=== PATIENT | female | born 1995 | race Two or more races ===

== ENCOUNTER → 2016-11-06 | Outpatient (REF) | payer OTHER | LOC: M SFHCLERA 16:54 | PROVIDERS: ATTEND Nurse Practitioner Family | DX: R53.81 Other malaise (principal) ==

== ENCOUNTER → 2020-01-03 | Outpatient (REF) | payer OTHER | LOC: M SFHCLERA 14:40 | PROVIDERS: ATTEND Physician Assistant | DX: J00 Acute nasopharyngitis [common cold] (principal) ==

== ENCOUNTER → 2023-06-25 | Outpatient (REF) | payer OTHER | LOC: M PLALAB 10:30 | PROVIDERS: ATTEND Advanced Practice Midwife | DX: Z53.9 Procedure and treatment not carried out, unspecified reason (principal) ==

== ENCOUNTER → 2023-07-04 | Outpatient (CLI) | payer BC, OTHER ==
[2023-07-04 15:58] LABS: HEMATOCRIT 38.7 % (36.0-47.0); HEMOGLOBIN 12.9 g/dl (12.0-15.5); MEAN CORPUSCULAR HGB CONC 33.3 g/dl (32.0-36.5); PLATELET COUNT, AUTOMATED 306 10^3/uL (150-450); RED BLOOD COUNT 4.45 10^6/uL (4.00-5.40); WHITE BLOOD COUNT 9.3 10^3/uL (4.0-10.0)
[2023-07-04 16:38] LABS: FREE T4 0.95 NG/DL (0.89-1.76); THYROID STIMULATING HORMONE 7.307 uIU/ML (0.55-4.78)
[2023-07-04 17:08] LABS: HIV 1&2 SCREEN NEGATIVE (NEGATIVE)
[2023-07-04 17:13] LABS: CHLAMYDIA DNA AMPLIFICATION NEGATIVE (NEGATIVE); GC DNA AMPLIFICATION NEGATIVE (NEGATIVE)
[2023-07-04 17:16] LABS: HEPATITIS C VIRUS ABY INDEX 0.05 INDEX (<0.8)
== END ==
LOC: M PLALAB 14:30
PROVIDERS: ATTEND Advanced Practice Midwife
DX: Z34.81 Encounter for supervision of other normal pregnancy, first trimester (principal)

== ENCOUNTER → 2023-08-13 | Outpatient (CLI) | payer BC, OTHER ==
[2023-08-13 16:15] LABS: FREE T4 1.12 NG/DL (0.89-1.76)
[2023-08-13 16:22] LABS: THYROID STIMULATING HORMONE 3.309 uIU/ML (0.55-4.78)
== END ==
LOC: M PLALAB 14:32
PROVIDERS: ATTEND Advanced Practice Midwife
DX: O99.280 Endocrine, nutritional and metabolic diseases complicating pregnancy, unspecified trimester (principal); Z3A.00 Weeks of gestation of pregnancy not specified

== ENCOUNTER → 2023-09-03 | Outpatient (CLI) | payer BC | LOC: M WHC 14:36 | PROVIDERS: ATTEND Advanced Practice Midwife | DX: Z34.82 Encounter for supervision of other normal pregnancy, second trimester (principal) ==

== ENCOUNTER → 2023-10-01 | Outpatient (CLI) | payer BC ==
[2023-10-01 16:00] LABS: FREE T4 1.05 NG/DL (0.89-1.76)
[2023-10-01 16:01] LABS: THYROID STIMULATING HORMONE 2.467 uIU/ML (0.55-4.78)
== END ==
LOC: M PLALAB 12:35
PROVIDERS: ATTEND Advanced Practice Midwife
DX: O99.282 Endocrine, nutritional and metabolic diseases complicating pregnancy, second trimester (principal)

== ENCOUNTER → 2023-11-06 | Outpatient (CLI) | payer BC ==
[2023-11-06 12:47] LABS: HEMATOCRIT 35.2 % (36.0-47.0); HEMOGLOBIN 11.5 g/dl (12.0-15.5); MEAN CORPUSCULAR HEMOGLOBIN 29.8 pg (27.0-33.0); MEAN CORPUSCULAR HGB CONC 32.7 g/dl (32.0-36.5); MEAN CORPUSCULAR VOLUME 91.2 fl (80.0-96.0); PLATELET COUNT, AUTOMATED 233 10^3/uL (150-450); RED BLOOD COUNT 3.86 10^6/uL (4.00-5.40)
== END ==
LOC: M PLALAB 08:35
PROVIDERS: ATTEND Advanced Practice Midwife
DX: Z34.83 Encounter for supervision of other normal pregnancy, third trimester (principal); Z3A.00 Weeks of gestation of pregnancy not specified

== ENCOUNTER → 2023-12-10 | Outpatient (CLI) | payer BC | LOC: M WHC 13:40 | PROVIDERS: ATTEND Specialist | DX: Z34.83 Encounter for supervision of other normal pregnancy, third trimester (principal) ==

== ENCOUNTER → 2023-12-22 | Outpatient (REF) | payer BC | LOC: M SFHCWAGY 12:34 | PROVIDERS: ATTEND Specialist | DX: Z34.83 Encounter for supervision of other normal pregnancy, third trimester (principal); Z36.85 Encounter for antenatal screening for Streptococcus B ==

== ENCOUNTER → 2023-12-31 | Outpatient (CLI) | payer BC ==
[2023-12-31 14:30] LABS: THYROID STIMULATING HORMONE 2.181 uIU/ML (0.55-4.78)
[2023-12-31 14:31] LABS: FREE T4 1.11 NG/DL (0.89-1.76)
== END ==
LOC: M PLALAB 09:54
PROVIDERS: ATTEND Advanced Practice Midwife
DX: O99.283 Endocrine, nutritional and metabolic diseases complicating pregnancy, third trimester (principal); Z3A.00 Weeks of gestation of pregnancy not specified

== ENCOUNTER 2024-01-13 21:48 | Inpatient (IN) | payer BC ==
[~2024-01-13] VITALS: Ht 172.7 cm; Wt 112.9 kg
[2024-01-13] MEDS ORDERED: LEVO50TA5 PO (21:58)
[2024-01-13] MEDS ORDERED: PRENTAB9 PO (21:58)
[2024-01-13] MEDS ORDERED: HOME MED LIST COMPLETE! XX SCH (22:00)
[2024-01-13 22:03] VITALS: BP 135/71; O2SAT 99
[2024-01-13] MEDS ORDERED: LR 1,000 ML IV SCH (22:10)
[2024-01-13] MEDS ORDERED: OXYTOCIN DRIP 30 UNITS in IV 1 EA IV PRN (22:10)
[2024-01-13] MEDS ORDERED: OXYTOCIN INJ 10UNITS/ML 1ML VIAL IV PRN (22:10)
[2024-01-13] MEDS ORDERED: OXYTOCIN DRIP 30 UNITS in IV 1 EA IV SCH (22:10)
[2024-01-13] MEDS ORDERED: METHYLERGONOVINE MALEATE 0.2MG/ML 1ML VIAL IM PRN (22:10)
[2024-01-13] MEDS ORDERED: OXYTOCIN INJ 10UNITS/ML 1ML VIAL IM PRN (22:10)
[2024-01-13] MEDS ORDERED: LIDOCAINE 1% MDV 20ML VIAL INFIL PRN (22:10)
[2024-01-13] MEDS ORDERED: CARBOPROST TROMETHAMINE 250 MCG/ML AMP IM PRN (22:10)
[2024-01-13] MEDS ORDERED: TRANEXAMIC ACID INJection 1,000 MG in NS 100 ML IV PRN (22:10)
[2024-01-13 22:40] LABS: BASO % 0.2 % (0.0-1.0); EOS % 0.3 % (0.0-3.0); HEMATOCRIT 36.4 % (36.0-47.0); LYMPH # 1.6 10^3/uL (1.5-5.0); LYMPH % 14.2 % (24.0-44.0); MEAN CORPUSCULAR HEMOGLOBIN 28.6 pg (27.0-33.0); MEAN CORPUSCULAR VOLUME 86.7 fl (80.0-96.0); MONO # 0.6 10^3/uL (0.0-0.8); MONO % 5.2 % (2.0-8.0); NEUTROPHILS # 8.7 10^3/uL (1.5-8.5); NEUTROPHILS % 79.3 % (36.0-66.0); PLATELET COUNT, AUTOMATED 219 10^3/uL (150-450)
[2024-01-13 22:45] VITALS: BP 125/78
[2024-01-13] MEDS: LACTATED RINGER'S 1000 ML IV STA (23:25)
[2024-01-13] MEDS: LR 1,000 ML IV SCH (23:25)
[2024-01-13 23:39] LABS: HEPATITIS C VIRUS ABY INDEX < 0.02 INDEX (<0.8)
[2024-01-13] MEDS ORDERED: ONDANSETRON 4MG 2ML VIAL IV PRN (23:40)
[2024-01-13] MEDS ORDERED: LR 500 ML IV PRN (23:40)
[2024-01-13] MEDS ORDERED: NALOXONE INJ 0.4MG/1ML VIAL IV PRN (23:40)
[2024-01-13] MEDS ORDERED: ePHEDrine SULFATE 25 MG/5 ML(5MG/ML) SYRINGE IVP PRN (23:40)
[2024-01-13] MEDS ORDERED: EPIDURAL/PCA KEYS XX PRN (23:40)
[2024-01-13] MEDS ORDERED: diphenhydrAMINE 50MG/ML VIAL IV PRN (23:40)
[2024-01-13] MEDS: FENTANYL/ROPIVACAINE/NACL BAG 100 ML EPIDURAL SCH (23:46)
[2024-01-13 23:47] VITALS: BP 137/87
[2024-01-13 23:52] VITALS: BP 141/80
[2024-01-13 23:57] VITALS: BP 136/81
[2024-01-14] VITALS (22 sets, daily range): BP systolic 98–158; BP diastolic 42–92; O2SAT 98
[2024-01-14] MEDS: LEVOTHYROXINE 75MCG TABLET (0.075MG) PO SCH (06:00)
[2024-01-14] MEDS: OXYTOCIN DRIP 30 UNITS in IV 1 EA IV PRN (06:15)
[2024-01-14 06:20] LABS: CORD GAS ABE A -4.5; CORD GAS O2 SAT A 92.6 %; CORD GAS PH A 7.337 UNITS; CORD GAS PO2 A 53.3 mmHg; CORD GAS SBC A 20.7 MMOL/L; CORD GAS TCO2 A 22.2 MMOL/L
[2024-01-14 06:23] LABS: CORD GAS ABE V -4.3; CORD GAS HCO3 V 21.6 MMOL/L; CORD GAS O2 SAT V 79.8 %; CORD GAS PCO2 V 42.8 mmHg; CORD GAS PH V 7.321 UNITS; CORD GAS PO2 V 35.8 mmHg; CORD GAS SBC V 20.5 MMOL/L; CORD GAS TCO2 V 22.9 MMOL/L
[2024-01-14] MEDS ORDERED: DIBUCAINE 1% OINTMENT 30GM TOP PRN (06:25)
[2024-01-14] MEDS ORDERED: IBUPROFEN 800 MG TAB PO PRN (06:25)
[2024-01-14] MEDS ORDERED: MOM 30ML SUSPENSION UDC PO PRN (06:25)
[2024-01-14] MEDS ORDERED: RHO(D) IMMUNE GLOBULIN/MALTOSE 500MCG(2500IU)/2.2ML VIAL (WINRHO) IM SCH (06:25)
[2024-01-14] MEDS: PRENATAL VITAMINS CHEWABLE TABLET PO SCH (08:16)
[2024-01-14] MEDS: DOCUSATE SODIUM 100MG CAPSULE PO SCH (09:00)
[2024-01-14] MEDS ORDERED: LEVO75TA4 PO (11:22)
[2024-01-14] MEDS: ACETAMINOPHEN 500 MG TAB PO PRN (21:22)
[2024-01-15 06:02] VITALS: BP 113/66; O2SAT 98
[2024-01-15] MEDS ORDERED: IBUP80TA PO (12:24)
[2024-01-15] MEDS ORDERED: ACET-683 PO (12:24)
[2024-01-16] MEDS ORDERED: MEASLES,MUMPS,RUBELLA VACCINE INJ (MMR-II) SC.IMMUN ONE (09:00)
== END 2024-01-15 14:15 | disposition home or self-care (01) | DRG 560 ==
LOC: M LDO 21:48 → M LDI 22:09 → M OBS 01-14 07:44
PROVIDERS: ADMIT Obstetrics & Gynecology; ATTEND Obstetrics & Gynecology
PROC: 10E0XZZ Delivery of Products of Conception, External Approach (ICD-10-PCS; principal; 2024-01-14)
DX: O99.284 Endocrine, nutritional and metabolic diseases complicating childbirth (principal); E03.9 Hypothyroidism, unspecified; Z37.0 Single live birth; Z3A.38 38 weeks gestation of pregnancy; Z91.040 Latex allergy status; Z79.899 Other long term (current) drug therapy

== ENCOUNTER → 2024-03-30 | Outpatient (CLI) | payer BC ==
[~2024-03-30] MED LIST: ACET-683 PO; IBUP80TA PO; LEVO50TA5 PO; LEVO75TA4 PO; PRENTAB9 PO
[2024-03-30 15:41] LABS: FREE T4 1.32 NG/DL (0.89-1.76); THYROID STIMULATING HORMONE 0.098 uIU/ML (0.55-4.78)
== END ==
LOC: M PLALAB 12:01
PROVIDERS: ATTEND Obstetrics & Gynecology
DX: Z01.818 Encounter for other preprocedural examination (principal)

== ENCOUNTER 2024-04-16 08:15 | Day surgery (SDC) | payer BC ==
[~2024-04-16] VITALS: Ht 172.7 cm; Wt 100.2 kg
[~2024-04-16 08:15] MED LIST changes: +ACETAMINOPHEN *IV* 1,000 MG in APPROPRIATE DILUENT 0 ML IV ONE; +LEVO25TA5 PO
[2024-04-16 08:55] LABS: HEMATOCRIT 43.3 % (36.0-47.0); HEMOGLOBIN 14.2 g/dl (12.0-15.5); MEAN CORPUSCULAR HGB CONC 32.8 g/dl (32.0-36.5); MEAN CORPUSCULAR VOLUME 88.4 fl (80.0-96.0); PLATELET COUNT, AUTOMATED 299 10^3/uL (150-450); WHITE BLOOD COUNT 6.8 10^3/uL (4.0-10.0)
[2024-04-16] MEDS ORDERED: HYDROmorphone HCL 2MG/ML 1ML VIAL As Ordered ONE (08:59)
[2024-04-16] MEDS ORDERED: MIDAZOLAM INJ 2MG/2ML VIAL As Ordered ONE (08:59)
[2024-04-16] MEDS ORDERED: fentaNYL 100 MCG/2 ML INJECTION As Ordered ONE (08:59)
[2024-04-16] MEDS ORDERED: propofoL 200 MG/20 ML VIAL As Ordered ONE (09:00)
[2024-04-16] MEDS ORDERED: SUGAMMADEX SODIUM 500 MG/5 ML VIAL (BRIDION) As Ordered ONE (09:01)
[2024-04-16] MEDS ORDERED: ROCURONIUM BROMIDE 50MG/5ML VIAL As Ordered ONE (09:01)
[2024-04-16] MEDS ORDERED: LIDOCAINE 2% 100MG/5ML SDV (FOR ANES.) As Ordered ONE (09:01)
[2024-04-16] MEDS ORDERED: LR 1,000 ML IV SCH (09:15)
[2024-04-16] MEDS ORDERED: ACETAMINOPHEN 1000MG 100ML IV BAG As Ordered ONE (10:28)
[2024-04-16] MEDS ORDERED: METOCLOPRAMIDE INJ 10MG/2ML VIAL As Ordered ONE (10:34)
[2024-04-16] MEDS ORDERED: ONDANSETRON 4MG 2ML VIAL As Ordered ONE (10:35)
[2024-04-16] MEDS ORDERED: KETOROLAC 60MG 2ML VIAL As Ordered ONE (10:35)
[2024-04-16] MEDS ORDERED: GLYCOPYRROLATE INJ 0.2 MG/ML 2 ML VIAL As Ordered ONE (11:00)
[2024-04-16] MEDS ORDERED: ONDANSETRON 4MG 2ML VIAL IV PRN (11:25)
[2024-04-16] MEDS ORDERED: MORPHINE 2 MG/ML 1ML VIAL IV PRN (11:25)
[2024-04-16] MEDS ORDERED: oxyCODONE 5MG TAB PO PRN (11:25)
[2024-04-16] MEDS ORDERED: fentaNYL 100 MCG/2 ML INJECTION IV PRN (11:25)
[2024-04-16 12:17] VITALS: BP 152/95; TEMP 97.8; O2SAT 98
== END 2024-04-16 12:41 | disposition home or self-care (01) ==
LOC: M SDC 08:15
PROVIDERS: ATTEND Obstetrics & Gynecology
DX: Z30.2 Encounter for sterilization (principal); E03.9 Hypothyroidism, unspecified; K21.9 Gastro-esophageal reflux disease without esophagitis; Z79.899 Other long term (current) drug therapy
CPT/HCPCS: 36415; 58661; 81025; 85027; 86850; 86900; 86901; 88302; J0131; J0665; J1100; J1171; J1885; J2250; J2405; J2765; J3010